=== PATIENT | female | born 1970 | race Caucasian/White ===

== ENCOUNTER 2021-10-09 15:39 | Emergency (ER) | payer OTHER, SELFPAY ==
--- NOTE | ~2021-10-09 | CT_ITS ---
EXAMINATION: CT soft tissue neck wo con DATE: 10/09/2021 18:00 INDICATION: TECHNIQUE: Computed tomography (CT) of the neck was performed without intravenous contrast. Automated exposure control and iterative reconstruction technique were employed. The dose-length product was 4 91.13 mGy-cm. COMPARISON: X-ray chest, same date. FINDINGS: The thyroid gland is unremarkable. The submandibular and parotid glands are symmetric. There is n o cervical lymphadenopathy. There are no masses identified. The superior mediastinum is unremarka ble. The airway is unremarkable. Parapharyngeal and pre-glottic fat planes are preserved. The or bits are unremarkable. Visualized sinuses and mastoid air cells are well aerated. Lungs are clear . There is cervical spondylosis. Right scalp lipoma. IMPRESSION: No foreign body detected. Reviewed, dictated and finalized at location K. IMPRESSION: No foreign body detected.
--- NOTE | ~2021-10-09 | XR_ITS ---
EXAMINATION: XR chest 2V Exam Date/Time: 10/09/2021 17:45 CDT HISTORY: dyspnea, FEELING OF PLASTIC STUCK IN HER THROAT TODAY Comparison: None available. RESULT: Lines, tubes, and devices: None. Lungs and pleura: Clear. Cardiomediastinal silhouette: Stable cardiomediastinal silhouette. Other: No acute osseous or upper abdominal finding. IMPRESSION: No acute cardiopulmonary process. No foreign body. Reviewed, dictated and finalized at location K.
[2021-10-09 15:46] VITALS: BP 131/90; PULSE 96; RESP 18; TEMP 36.2; O2SAT 99
--- NOTE | 2021-10-09 18:05 | ED.GENADULT ---
HPI - General Adult General Chief complaint: Unspecified Stated complaint: fb in throat Time Seen by Provider: 10/09/21 17:39 Source: RN notes reviewed History of Present Illness HPI narrative: Patient presents emergency department from home for possible foreign body in the throat. Patient states that for 1 she gone to [employer] and got a chicken wrap she states she had eaten a chicken wrap for like something got stuck in her throat that time she had taken drink a soda and felt like it gone through but still felt something was stuck in there she states she went to another bite and at that time she noticed that there had been a chunk of plastic in the chicken wrap and she does have a picture of it and shows it to me in the ER. Patient states since that time she had irritation in her throat just at the base of the neck and above the chest states she is able to drink water and keep it down she denies any fevers or chills shortness of breath or any other Course Course Emergency Course: Discussed with patient results of workup and diagnosis. Discussed need for follow-up with primary care, proper use of medication, and reasons to return to the emergency department. Patient understands and agrees to current treatment plan Vital Signs Vital signs: Vital Signs Temperature 97.2 F L 10/09/21 15:46 Pulse Rate 96 10/09/21 15:46 Respiratory Rate 18 10/09/21 15:46 Blood Pressure 131/90 10/09/21 15:46 Pulse Oximetry 99 10/09/21 15:46 Oxygen Delivery Room Air 10/09/21 15:46 Temperature 97.2 F L 10/09/21 15:46 Pulse Rate 96 10/09/21 15:46 Respiratory Rate 18 10/09/21 15:46 Blood Pressure 131/90 10/09/21 15:46 Pulse Oximetry 99 10/09/21 15:46 Oxygen Delivery Room Air 10/09/21 15:46 Medical Decision Making Vital Signs Vital Signs: Vital Signs Temperature 97.2 F L 10/09/21 15:46 Pulse Rate 96 10/09/21 15:46 Respiratory Rate 18 10/09/21 15:46 Blood Pressure 131/90 10/09/21 15:46 Pulse Oximetry 99 10/09/21 15:46 Oxygen Delivery Room Air 10/09/21 15:46 Temperature 97.2 F L 10/09/21 15:46 Pulse Rate 96 10/09/21 15:46 Respiratory Rate 18 10/09/21 15:46 Blood Pressure 131/90 10/09/21 15:46 Pulse Oximetry 99 10/09/21 15:46 Oxygen Delivery Room Air 10/09/21 15:46 Imaging Data Radiologist's impression: ITS Impressions Chest X-Ray 10/09/21 18:55 IMPRESSION: No acute cardiopulmonary process. No foreign body. Soft Tissue Neck CT 10/09/21 18:55 IMPRESSION: No foreign body detected. Discharge Plan Discharge Clinical Impression: Feeling of foreign body in throat Patient Disposition: Home, Self-Care Condition: Stable Instructions: Antibiotic Form Additional Instructions: Return for increasing throat pain inability to swallow or any other symptoms of concern Prescriptions: New pantoprazole [Protonix] 40 mg tablet,delayed release (DR/EC) 40 mg PO HS Qty: 14 0RF Follow-up/Referrals: PHYSICIAN NOT ON STAFF,NONSTAFF [Non-Staff] - Kyler Ga MD [Physician] - (Up in 2 to 3 days for further GI specialist treatment and evaluation) Time of Disposition: 18:41
[2021-10-09] MEDS: PANTOPRAZOLE 40 MG TABLET PO (18:50)
== END 2021-10-09 19:22 | disposition home or self-care (01) ==
PROVIDERS: Emergency Provider Emergency Medicine
DX: R09.89 Other specified symptoms and signs involving the circulatory and respiratory systems (principal)
CPT/HCPCS: 70490; 71046; 99284; A9270

== ENCOUNTER 2021-10-17 11:42 | Outpatient (CLI) | payer OTHER, SELFPAY ==
--- NOTE | ~2021-10-17 | XR_ITS ---
EXAMINATION: XR abdomen/kub 1V INDICATION: Left pelvic and perineal pain TECHNIQUE: Supine views of the abdomen were obtained on 2 radiographs. COMPARISON: None FINDINGS: The bowel gas pattern is normal. There are no dilated loops of bowel. An IUD is noted in th e pelvis. Surgical clips in the pelvis may reflect to prior tubal ligation. There is mild osteoarthri tis of the hips. IMPRESSION: 1. No radiographic correlate for the patient's symptoms. Reviewed, dictated and finalized at location A.
== END 2021-10-17 11:43 | disposition home or self-care (01) ==
PROVIDERS: Visit Provider Nurse Practitioner
DX: R10.2 Pelvic and perineal pain (principal); R11.0 Nausea; Z97.5 Presence of (intrauterine) contraceptive device; M16.0 Bilateral primary osteoarthritis of hip
CPT/HCPCS: 74018

== ENCOUNTER 2021-11-27 00:21 | Day surgery (SDC) | payer OTHER, SELFPAY ==
[2021-11-08 13:52] VITALS: BMI 28.8
--- NOTE | 2021-11-24 11:13 | SUR.PREOP ---
Left message about magnesium citrate recall.
[2021-11-27 08:12] VITALS: BP 135/65; PULSE 71; RESP 18; TEMP 36.2; O2SAT 97
[2021-11-27] MEDS: LACTATED RINGERS 1,000 ML 150 ML IV CONT (08:13)
--- NOTE | 2021-11-27 08:47 | WPDANESEPPF ---
Anes - Initial Pre Proc Eval Procedure: Operation Date: 11/27/21 09:00 Proposed Procedures p Esophagogastroduodenoscopy & Screening Colonoscopy - Kyler Ga MD Date/Time: 11/27/21 08:47 Surgeon: Kyler Ga MD Pre Op Diagnosis: F/B of esophagus, neoplasm screening, nausea Patient Data Age: 51 Gender: F Height: 1.78 m Weight: 98.6 kg Last Vital Signs Temp 97.1 F L 11/27/21 08:12 Pulse 71 11/27/21 08:12 Resp 18 11/27/21 08:12 BP 135/65 11/27/21 08:12 Pulse Ox 97 11/27/21 08:12 O2 Del Method Room Air 11/27/21 08:12 Allergies Allergy/AdvReac Type Severity Reaction Status Date / Time povidone-iodine Allergy Severe blisters Verified 11/27/21 08:09 [From Betadine] aspirin Allergy Mild Rash Verified 11/27/21 08:09 banana Allergy Rash Verified 11/27/21 08:09 bee venom protein (honey bee) Allergy Hives Verified 11/27/21 08:09 coconut Allergy Rash Verified 11/27/21 08:09 Home Medications Medication Instructions Recorded Confirmed Type pantoprazole 40 mg tablet,delayed 40 mg PO HS #14 tabs 10/09/21 11/08/21 Rx release (Protonix) levonorgestrel 20 mcg/24 hours (7 1 device intrauterine ONCE 10/17/21 11/08/21 History yrs) 52 mg intrauterine device (Mirena) sucralfate 1 gram tablet (Carafate) 1 g PO ACHS #120 tabs 10/17/21 11/08/21 Rx Patient hx anesthesia problems: none Family hx anesthesia problems: none Results Review: All pre-operative results and documents have been reviewed as part of the pre-operative evaluation. [facility] Past Medical History Medical History (Updated 10/17/21 @ 11:39 by Angela Calvillo APRN) Cervical cancer Colon cancer screening Foreign body Nausea Ovarian cancer Suprapubic pain Surgical History Surgical History (Updated 10/17/21 @ 11:02 by Ailyn Levy CMA) H/O tubal ligation Family History Family History (Updated 10/17/21 @ 11:04 by Ailyn Levy CMA) Mother Factor 5 Leiden mutation, heterozygous Anxiety Father Lung cancer Social History Social History (Updated 10/17/21 @ 11:04 by Ailyn Levy CMA) Smoking status: Never smoker Alcohol intake: never Substance use: never Substance use type: does not use Living arrangements: alone Spiritual care concerns: No Anes - Eval Final PreProcedure Day of Procedure 11/27/21 08:47 Patient weight: obese Airway: Mallampati scale class II ASA classification: III Anesthesia type and monitoring: general GIVS and standard monitoring Results Review: All pre-operative results and documents have been reviewed as part of the pre-operative evaluation. Informed Consent: The patient's anesthetic plan and its attendant risks and benefits were discussed with the patient/family/POA. Questions were solicited and answers provided to the satisfaction of the patient/family/POA.
--- NOTE | 2021-11-27 09:01 | PM.HPGS ---
History of Present Illness History of Present Illness Consent: Risks, benefits, and alternatives have been discussed and questions answered. Patient agrees to proceed with procedure. Chief complaint: F/B of esophagus, neoplasm screening, nausea Narrative: Alyce Peres is a 51 year old female here for egd and colonoscopy (never had), 09/2021 swallowed a piece of plastic from a chicken container that caused chest discomfort, prompted ER visit Review of Systems Constitutional: Constitutional: Denies headache(s) and Denies weakness Eyes: Eyes: Denies blurry vision ENT: Reports Normal hearing present, Denies headache(s) and Denies neck pain Cardiovascular: Cardiovascular: Denies chest pain and Denies dyspnea Respiratory: Respiratory: Denies dyspnea Gastrointestinal: Gastrointestinal: Reports no additional gastrointestinal complaints Genitourinary: Genitourinary: Denies dysuria Musculoskeletal: Musculoskeletal: Denies neck pain Integumentary/Breasts: Skin/Breast: Denies dry skin Neurologic: Reports Normal hearing present, Denies headache(s) and Denies weakness Psychiatric: Psychiatric: Denies anxiety Endocrine: Endocrine: Denies change in body appearance Hematologic/Lymphatic: Hematologic/Lymphatic: Denies easy bleeding Allergic/Immunologic: Allergic/Immunologic: Denies urticaria PMF Past Medical History Medical History (Updated 10/17/21 @ 11:39 by Angela Calvillo, RENA) Cervical cancer Colon cancer screening Foreign body Nausea Ovarian cancer Suprapubic pain Surgical History Surgical History (Updated 10/17/21 @ 11:02 by Ailyn Levy CMA) H/O tubal ligation Family History Family History (Updated 10/17/21 @ 11:04 by Ailyn Levy CMA) Mother Factor 5 Leiden mutation, heterozygous Anxiety Father Lung cancer Social History Social History (Updated 10/17/21 @ 11:04 by Ailyn Levy CMA) Smoking status: Never smoker Alcohol intake: never Substance use: never Substance use type: does not use Living arrangements: alone Spiritual care concerns: No Meds Home Medications and Allergies Home Medications Medication Instructions Recorded Confirmed Type pantoprazole 40 mg tablet,delayed 40 mg PO HS #14 tabs 10/09/21 11/08/21 Rx release (Protonix) levonorgestrel 20 mcg/24 hours (7 1 device intrauterine ONCE 10/17/21 11/08/21 History yrs) 52 mg intrauterine device (Mirena) sucralfate 1 gram tablet (Carafate) 1 g PO ACHS #120 tabs 10/17/21 11/08/21 Rx Allergies Allergy/AdvReac Type Severity Reaction Status Date / Time povidone-iodine Allergy Severe blisters Verified 11/27/21 08:09 [From Betadine] aspirin Allergy Mild Rash Verified 11/27/21 08:09 banana Allergy Rash Verified 11/27/21 08:09 bee venom protein (honey bee) Allergy Hives Verified 11/27/21 08:09 coconut Allergy Rash Verified 11/27/21 08:09 Vital Signs Vital Signs - 24 hr 11/27/21 08:12 Temperature 97.1 F L Pulse Rate 71 Respiratory Rate 18 Blood Pressure 135/65 Pulse Oximetry 97 Oxygen Delivery Room Air Exam Const: General: comfortable and no acute distress HENMT: General nose exam: Normal nares present Eyes: General: appearance normal, both eyes and all related structures Neck: Neck: no JVD Resp: Auscultation: clear to auscultation bilaterally Cardio: Rate: regular rate Rhythm: regular rhythm GI: Inspection: non-distended GI Palp: Yes Soft to palpation Skin: General skin exam: normal color Neuro: General: gait normal Speech: normal speech Extrem: General: normal to inspection Psych: Mental Status: mental status grossly normal Assessment and Plan Assessment and plan (1) Colon cancer screening: Code(s): Z12.11 - Encounter for screening for malignant neoplasm of colon Status: Acute Assessment and Plan: colonoscopy (2) Foreign body: Status: Acute Assessment and Plan: no more se
[2021-11-27 09:28] VITALS: BP 114/66; PULSE 62; RESP 15; O2SAT 97
[2021-11-27 09:38] VITALS: BP 119/71; PULSE 68; RESP 18; O2SAT 97
[2021-11-27 09:48] VITALS: BP 106/71; PULSE 57; RESP 15; O2SAT 57
== END 2021-11-27 09:54 | disposition home or self-care (01) ==
PROVIDERS: Visit Provider Internal Medicine Gastroenterology
PROC: 0DJ08ZZ Inspection of Upper Intestinal Tract, Via Natural or Artificial Opening Endoscopic (ICD-10-PCS; CPT 43235; principal; 2021-11-27 09:00)
DX: Z12.11 Encounter for screening for malignant neoplasm of colon (principal); D12.8 Benign neoplasm of rectum; K64.8 Other hemorrhoids; E66.9 Obesity, unspecified; Z68.31 Body mass index [BMI] 31.0-31.9, adult; Z87.19 Personal history of other diseases of the digestive system
CPT/HCPCS: 45385; 43235; 88305; J2001; J2704; J7120